=== PATIENT | female | born 1990 | race Caucasian/White ===

== ENCOUNTER → 2021-06-12 10:59 | Outpatient (REF) | payer MEDICAID, SELFPAY ==
--- NOTE | 2021-06-12 11:07 | ECG_ITS ---
Test Reason : methadone qt prolongation Blood Pressure : / mmHG Vent. Rate : 076 BPM Atrial Rate : 076 BPM P-R Int : 140 ms QRS Dur : 078 ms QT Int : 390 ms P-R-T Axes : 037 031 025 degrees QTc Int : 438 ms Normal sinus rhythm Normal ECG No previous ECGs available Referred By: Evelyne Villalta Electronically Signed By:LOTTIE BORJAS MD
== END ==
LOC: HO.CARD 10:59
PROVIDERS: Visit Provider Family Medicine
DX: Z79.899 Other long term (current) drug therapy (principal)
CPT/HCPCS: 93005